=== PATIENT | male | born 1945 | race Caucasian/White ===

== ENCOUNTER → 2023-05-29 11:47 | Outpatient (REF) | payer MEDICARE, OTHER, SELFPAY ==
[2023-05-29 13:16] LABS: Blood Urea Nitrogen 19 mg/dl (9-20); Calcium 9.2 mg/dl (8.4-10.2); Carbon Dioxide 31 mmol/L (22-30); Chloride 88 mmol/L (98-107); Glucose 85 mg/dl (70-99); Magnesium 1.7 mg/dl (1.6-2.3); Potassium 4.1 mmol/L (3.5-5.1); Sodium 129 mmol/L (135-145); eGFR > 60.00
[2023-05-29 14:34] LABS: Glycohemoglobin (HgbA1c) 6.1 % (4.0-5.6)
== END ==
LOC: REG 11:47
PROVIDERS: ATTENDING PHYSICIAN Internal Medicine Interventional Cardiology; FAMILY PHYSICIAN Family Medicine
DX: E78.2 Mixed hyperlipidemia (principal); I10 Essential (primary) hypertension; I77.810 Thoracic aortic ectasia; I05.0 Rheumatic mitral stenosis; R73.09 Other abnormal glucose
CPT/HCPCS: 36415; 80048; 83036; 83735

== ENCOUNTER → 2023-05-29 14:05 | Outpatient (REF) | payer MEDICARE, OTHER, SELFPAY ==
[2023-05-29 19:12] LABS: Urine Albumin Negative (Neg - Trace); Urine Bilirubin Negative (Negative); Urine Character Clear (Clear); Urine Color Yellow; Urine Glucose Negative (Negative); Urine Ketone Negative (Negative); Urine Leukocyte 2+ (Negative); Urine Nitrite Negative (Negative); Urine Occult Blood 1+ (Negative); Urine Urobilinogen Negative (Neg - 1+)
[2023-05-29 19:50] LABS: Urine White Cell 50-60 /HPF (0-5)
[2023-05-29 19:51] LABS: Urine Red Blood Cell 0-2 /HPF (0-2)
== END ==
LOC: CLAB 14:05
PROVIDERS: ATTENDING PHYSICIAN Specialist
DX: N39.0 Urinary tract infection, site not specified (principal)
CPT/HCPCS: 81003; 81015; 87086

== ENCOUNTER → 2023-06-08 17:32 | Outpatient (REF) | payer MEDICARE, OTHER, SELFPAY | LOC: REG 17:32 | PROVIDERS: ATTENDING PHYSICIAN Specialist | DX: N39.0 Urinary tract infection, site not specified (principal) | CPT/HCPCS: 87077; 87086; 87186 ==

== ENCOUNTER 2023-07-30 09:30 | Emergency (ER) | payer MEDICARE, OTHER, SELFPAY ==
[2023-07-30 09:49] VITALS: BP 127/80
--- NOTE | 2023-07-30 10:55 | ED.GENMED ---
History of Present Illness
General
Chief Complaint: Fall
Source: patient
Exam Limitations: none
Time Seen by Provider: 07/30/23 10:50
Travel History
Have you had any contact with someone who has COVID-19?: No
Do you have any symptoms of coronavirus? Fever > 100 degrees, chills, cough, shortness of breath, sore throat, loss of taste or smell, muscle aches, or headache?: No
History of Present Illness
History of Present Illness:
See MDM
Past History
Past History
ED Past Medical History: Cancer (Melanoma) and HTN
ED Past Surgical History: Orthopedic and Tonsilectomy
Social History
Tobacco: Non-smoker
Phy Exam
Physical Exam
Physical Exam:
See MDM
Course
Orders/Labs/Results
Orders:
Orders
07/30/23 09:[address] [CT Head W/o Iv Contrast] Urgent
Comment:
Reason For Exam: fall
07/30/23 10:55
US Periph Venous LOWER Ext RT Urgent
Comment:
Reason For Exam: R calf pain
Vital Signs
Initial and Last Documented VS:
Initial Vital Signs
Temp Pulse Resp BP Pulse Ox
97.7 F 71 18 127/80 95
07/30/23 09:49 07/30/23 09:49 07/30/23 09:49 07/30/23 09:49 07/30/23 09:49
Last Documented Vital Signs
Temp Pulse Resp BP Pulse Ox
97.7 F 71 18 127/80 95
07/30/23 09:49 07/30/23 09:49 07/30/23 09:49 07/30/23 09:49 07/30/23 09:49
MDM/Problems Addressed
Differential Diagnosis Includes:
HPI and MDM Narrative:
78-year-old male presenting with a slip and fall. Patient hit the right side of his head. Patient is on blood thinners. Patient also complaining of right calf pain. This has been bothering him. He thinks he strained something during physical
therapy
Exam, patient has small abrasion to right scalp. CT scan was performed prior to my evaluation and shows no evidence of bleeding. On exam, he does have pain to the proximal right calf and behind the popliteal fossa. Given the area of concern, will
obtain ultrasound to rule out DVT
Physical exam
General: Well appearing and non-toxic
HEENT: protecting airway. Abrasion to right scalp
Neck: supple
CV: No evidence of cyanosis
Resp: No accessory muscle use
Abd: Non-distended
Extremities: No deformities. Tenderness to right popliteal fossa. Extremity otherwise neurovascular intact
Neuro: alert
Psych: Normal affect
Skin: Intact
Problems Addressed including Acute and Chronic Conditions affecting care:
1. Head injury
Acuity: acute
Prognosis: stable
Details: CT head negative.
2. Right calf pain
Acuity: acute
Prognosis: stable
Details: Will obtain ultrasound to rule out DVT
Updates
Ultrasound negative for DVT. Patient feels comfortable going home
Differential Diagnosis (but not limited to): Abrasion, concussion, fracture, bleed,DVT
Testing considered: CT neck but he denies meck pain
Drug therapy (if applicable): OTC meds, please see d/c instruction regarding Rx drugs
Amount and/or Complexity of Data Reviewed
Clinical info obtained from: Patient
External data reviewed: N/A
Labs I independently reviewed (but not limited to): N/A
Radiology: The CT scan was personally and independently reviewed. In addition, official CT report reviewed.
Pulse Ox: not hypoxic
EKG independently reviewed: N/A
Repairer General: N/A
Critical Care: N/A
Risk of Complication:
Social Determinants of health: Good social support
Discussed with other providers: N/A
Escalation of Care includes Admit/Obs: After being observed in the Emergency Department, pt stable for discharge.
Occasional wrong word or 'sound a like' substitutions may have occurred due to the inherent limitations of voice recognition software. Read the chart carefully and recognize, using context, where substitutions have occurred.
*Critical Care Note
Total Time (30-74mins, 75-104mins- exclusive of procedures): Not Applicable
ED Attending Note
-
Portions of this chart may have been created with voice recognition software.� Occasional wrong word or��sound alike� substitutions may have occurred due to the inherent limitations of voice recognition software.
Discharge Plan
Departure
Patient Disposition: Home (Routine Discharge)
Date of Disposition: 07/30/23
Time of Disposition: 12:09
Patient with high blood pressure during this ER visit?: No
Discharge Problem:
Strain of right calf muscle, Head injury
Instructions: Head Injury in Adults (DC)
Referrals:
Mayito Beltran MD [Family Provider] -
Activity Restrictions/Additional Instructions:
Please return for any worsening symptoms.
You may return at any time if you have further concerns.
Please follow up with your doctor at the first available appointment, preferably this week.
Please keep your orthopedic appointment later today.
Thank you for choosing [facility].
Interventions
Interventions:
*Risk Screen - Suicide Last Done: 07/30/23 11:10
*General Assessment Last Done: 07/30/23 11:10
*Neglect/Abuse Screening Last Done: 07/30/23 11:10
ED-Musculoskeletal Assessment Last Done: 07/30/23 11:10
ED- Neurological Assessment Last Done: 07/30/23 11:10
ED-Skin Assessment Last Done: 07/30/23 11:10
Discharge Date and Time
Print Language: BELARUSIAN
== END 2023-07-30 12:23 | disposition home or self-care (01) ==
LOC: EMR 09:30
PROVIDERS: EMERGENCY PHYSICIAN Student in an Organized Health Care Education/Training Program; FAMILY PHYSICIAN Family Medicine
DX: S86.111A Strain of other muscle(s) and tendon(s) of posterior muscle group at lower leg level, right leg, initial encounter (principal); S09.90XA Unspecified injury of head, initial encounter; S00.01XA Abrasion of scalp, initial encounter; W01.0XXA Fall on same level from slipping, tripping and stumbling without subsequent striking against object, initial encounter; M79.604 Pain in right leg
CPT/HCPCS: 70450; 93971; 99284

== ENCOUNTER → 2023-09-22 10:35 | Outpatient (REF) | payer MEDICARE, OTHER, SELFPAY ==
[2023-09-22 12:46] LABS: Urine Albumin Trace (Neg - Trace); Urine Bilirubin Negative (Negative); Urine Character Slightly Cloudy (Clear); Urine Color Yellow; Urine Glucose Negative (Negative); Urine Ketone Trace (Negative); Urine Leukocyte 2+ (Negative); Urine Nitrite Negative (Negative); Urine Occult Blood 2+ (Negative); Urine Urobilinogen Negative (Neg - 1+)
[2023-09-22 13:09] LABS: Urine Bacteria Few (Negative); Urine Red Blood Cell 0-2 /HPF (0-2); Urine Squamous Cell 0-2 /LPF (Few); Urine White Cell 70-80 /HPF (0-5)
== END ==
LOC: REG 10:35
PROVIDERS: ATTENDING PHYSICIAN Specialist; FAMILY PHYSICIAN Family Medicine
DX: N39.0 Urinary tract infection, site not specified (principal)
CPT/HCPCS: 81003; 81015; 87086

== ENCOUNTER → 2024-03-21 11:25 | Outpatient (REF) | payer MEDICARE, OTHER, SELFPAY ==
[2024-03-21 12:32] LABS: % Basophils 1.2 % (0-2); % Eosinophils 0.7 % (0-6); % Immature Granulocytes 0.2 % (0-0.5); % Lymphocytes 28.3 % (20.5-51.1); % Monocytes 12.6 % (1.7-9.3); Absolute Basophils 0.1 10^3/uL (0-0.2); Absolute Lymphocytes 1.2 10^3/uL (1.2-3.4); Absolute Monocytes 0.5 10^3/uL (0.1-0.6); Absolute Neutrophils 2.4 10^3/uL (1.4-6.5); Hematocrit 36.3 % (39.0-52.0); Hemoglobin 12.7 g/dL (13.0-18.0); Mean Corpuscular Volume 88.5 fL (80.0-94.0); Mean Platelet Volume 9.3 fL (7.4-10.4); Nucleated Red Blood Cells % 0 % (-); Platelet Count 142 10^3/uL (130-400); White Blood Cell Count 4.2 10^3/uL (4.8-10.8)
[2024-03-21 12:50] LABS: ALT (SGPT) 31 U/L (0-50); AST (SGOT) 39 U/L (17-59); Albumin 4.4 g/dl (3.5-5.0); Alkaline Phosphatase 101 U/L (38-126); Blood Urea Nitrogen 17 mg/dl (9-20); Calcium 9.3 mg/dl (8.4-10.2); Carbon Dioxide 32 mmol/L (22-30); Chloride 89 mmol/L (98-107); Glucose 105 mg/dl (70-99); HDL Cholesterol 73 mg/dl; LDL Cholesterol, Calculated 60 mg/dl; Potassium 3.5 mmol/L (3.5-5.1); Sodium 133 mmol/L (135-145); Total Bilirubin 0.7 mg/dl (0.2-1.3); Total Cholesterol 144 mg/dl (50-199); Total Protein 7.1 g/dl (6.3-8.2); Triglyceride 55 mg/dl (10-149); Very Low Density Lipoprotein 11 mg/dl (0-30); eGFR > 60.00
[2024-03-21 13:10] LABS: Total Thyroxine 5.55 ug/dl (5.5-11.0)
[2024-03-21 13:22] LABS: PSA, Total - Diagnostic 9.37 ng/ml (0.0-4.0)
[2024-03-21 13:36] LABS: Urine Albumin Trace (Neg - Trace); Urine Bilirubin Negative (Negative); Urine Character Clear (Clear); Urine Color Yellow; Urine Glucose Negative (Negative); Urine Ketone Negative (Negative); Urine Leukocyte Trace (Negative); Urine Nitrite Negative (Negative); Urine Occult Blood Negative (Negative); Urine Urobilinogen Negative (Neg - 1+); Urine pH 6.5 (5.0-9.0)
[2024-03-21 13:52] LABS: Glycohemoglobin (HgbA1c) 5.6 % (4.0-5.6)
[2024-03-21 14:38] LABS: Urine Squamous Cell 0-2 /LPF (Few)
[2024-03-21 14:39] LABS: Urine Red Blood Cell 0-2 /HPF (0-2); Urine White Cell 16-20 /HPF (0-5)
== END ==
LOC: REG 11:25
PROVIDERS: ATTENDING PHYSICIAN Family Medicine
DX: E78.00 Pure hypercholesterolemia, unspecified (principal); I10 Essential (primary) hypertension; N40.1 Benign prostatic hyperplasia with lower urinary tract symptoms; Z12.5 Encounter for screening for malignant neoplasm of prostate; Z79.899 Other long term (current) drug therapy
CPT/HCPCS: 36415; 80053; 80061; 81003; 81015; 83036; 84153; 84436; 85025

== ENCOUNTER → 2024-06-16 07:11 | Outpatient (REF) | payer MEDICARE, OTHER, SELFPAY | LOC: RCS 07:11 | PROVIDERS: ATTENDING PHYSICIAN Internal Medicine Interventional Cardiology; FAMILY PHYSICIAN Family Medicine | DX: I48.0 Paroxysmal atrial fibrillation (principal); I77.810 Thoracic aortic ectasia; I05.0 Rheumatic mitral stenosis | CPT/HCPCS: 93306 ==

== ENCOUNTER → 2024-08-23 09:31 | Outpatient (REF) | payer MEDICARE, OTHER, SELFPAY ==
[2024-08-23 10:37] LABS: Blood Urea Nitrogen 26 mg/dl (9-20); Calcium 9.5 mg/dl (8.4-10.2); Carbon Dioxide 30 mmol/L (22-30); Chloride 93 mmol/L (98-107); Glucose 94 mg/dl (70-99); Potassium 3.9 mmol/L (3.5-5.1); Sodium 133 mmol/L (135-145); eGFR > 60.00
== END ==
LOC: REG 09:31
PROVIDERS: ATTENDING PHYSICIAN Internal Medicine Interventional Cardiology; FAMILY PHYSICIAN Family Medicine
DX: I10 Essential (primary) hypertension (principal)
CPT/HCPCS: 36415; 80048

== ENCOUNTER 2025-01-09 06:26 | Day surgery (SDC) | payer MEDICARE, OTHER, SELFPAY | END 2025-01-09 09:49 | disposition home or self-care (01) | LOC: GI 06:26 | PROVIDERS: ATTENDING PHYSICIAN Student in an Organized Health Care Education/Training Program | DX: Z12.11 Encounter for screening for malignant neoplasm of colon (principal); K57.30 Diverticulosis of large intestine without perforation or abscess without bleeding; K64.8 Other hemorrhoids; K62.89 Other specified diseases of anus and rectum; D12.0 Benign neoplasm of cecum; D12.5 Benign neoplasm of sigmoid colon; D12.2 Benign neoplasm of ascending colon; K63.5 Polyp of colon; K62.1 Rectal polyp | CPT/HCPCS: 45385; 45380; 88305 ==

== ENCOUNTER 2025-02-21 06:09 | Day surgery (SDC) | payer MEDICARE, OTHER, SELFPAY ==
[2025-02-21 09:47] VITALS: BMI 30.7
[2025-02-21 09:48] VITALS: BP 152/99; BMI 30.7
[2025-02-21 11:10] VITALS: BP 177/99
[2025-02-21 11:12] VITALS: BP 171/105
[2025-02-21 11:15] VITALS: BP 167/110
== END 2025-02-21 11:30 | disposition home or self-care (01) ==
LOC: SDS 06:09
PROVIDERS: ATTENDING PHYSICIAN Internal Medicine Gastroenterology
DX: K63.5 Polyp of colon (principal)
CPT/HCPCS: 45330

== ENCOUNTER 2025-04-05 06:27 | Day surgery (SDC) | payer MEDICARE, OTHER, SELFPAY ==
[2025-04-05 10:15] VITALS: BMI 30.4
[2025-04-05 10:30] VITALS: BP 172/112
[2025-04-05 10:39] VITALS: BMI 30.4
[2025-04-05 12:58] VITALS: BP 168/100
[2025-04-05 13:00] VITALS: BP 174/96
[2025-04-05 13:15] VITALS: BP 161/97
[2025-04-05 13:23] VITALS: BP 169/92
== END 2025-04-05 13:30 | disposition home or self-care (01) ==
LOC: SDS 06:27
PROVIDERS: ATTENDING PHYSICIAN Internal Medicine Gastroenterology
DX: K62.89 Other specified diseases of anus and rectum (principal); K57.30 Diverticulosis of large intestine without perforation or abscess without bleeding; K64.0 First degree hemorrhoids
CPT/HCPCS: 45341